=== PATIENT | female | born 1955 | race Caucasian/White ===

== ENCOUNTER → 2017-03-22 | Outpatient (CLI) | payer BC, OTHER | LOC: WC.BC 12:58 | DX: Z12.31 Encounter for screening mammogram for malignant neoplasm of breast (principal); N64.89 Other specified disorders of breast | CPT/HCPCS: 77063; G0202 ==

== ENCOUNTER → 2017-03-26 | Outpatient (CLI) | payer BC, OTHER | LOC: WC.BC 13:49 | PROVIDERS: ATTEND Obstetrics & Gynecology | DX: D48.61 Neoplasm of uncertain behavior of right breast (principal); R92.1 Mammographic calcification found on diagnostic imaging of breast; N63 Unspecified lump in breast; R92.2 Inconclusive mammogram | CPT/HCPCS: 76642; G0206 ==

== ENCOUNTER → 2017-03-28 | Outpatient (CLI) | payer BC, OTHER ==
[~2017-03-28] MED LIST: LIDOCAINE 1% 30ml (STERI-PAK) ONE
== END ==
LOC: IMA 10:26
PROVIDERS: ATTEND Obstetrics & Gynecology
DX: C50.911 Malignant neoplasm of unspecified site of right female breast (principal); Z17.1 Estrogen receptor negative status [ER-]; N63 Unspecified lump in breast; R92.1 Mammographic calcification found on diagnostic imaging of breast